=== PATIENT | male | born 1975 | race Caucasian/White ===

== ENCOUNTER 2023-10-23 18:56 | Emergency (ER) | payer BC ==
[~2023-10-23] VITALS: Ht 177.8 cm; Wt 109.1 kg
[2023-10-23 19:11] VITALS: TEMP 98.2
[2023-10-23] MEDS ORDERED: Ketorolac 15 MG/ML VIAL IV ONE (19:30)
[2023-10-23] MEDS ORDERED: Ondansetron 4 MG/2 ML VIAL IV ONE (19:30)
[2023-10-23] MEDS ORDERED: LR 1,000 ML IV ONE (19:30)
[2023-10-23 19:47] LABS: COLLECTION METHOD CLEAN CATCH
[2023-10-23 19:52] LABS: BASO # 0.1 K/mm3 (0.0-0.2); BASO % 0.4 % (0.0-2.0); EOS # 0.1 K/mm3 (0.0-0.7); EOS % 0.6 % (0.0-4.0); GRAN # 11.7 K/mm3 (1.4-6.5); GRAN % 82.7 % (42.2-75.2); HEMATOCRIT 45.4 % (42.0-52.0); HEMOGLOBIN 16.5 g/dl (13.5-18.0); LYMPH # 1.1 K/mm3 (1.2-3.4); LYMPH % 7.9 % (20.0-51.0); MEAN CELL VOLUME 93 fl (80.0-100.0); MEAN CORPUSCULAR HEMOGLOBIN 34 pg (27-31); MEAN CORPUSCULAR HGB CONC 36 g/dl (33.0-37.0); MEAN PLATELET VOLUME 9.6 fl (7.4-10.4); MONO # 1.2 K/mm3 (0.1-0.6); MONO % 8.1 % (1.7-9.3); PH 7.5 (5.0-8.5); PLATELET COUNT 269 K/mm3 (130-400); RED BLOOD COUNT 4.89 M/mm3 (4.20-5.60); REDCELL DISTRIBUTION WIDTH-CV 13.2 % (11.5-14.5); URINE APPEARANCE CLEAR (CLEAR/HAZY); URINE BLOOD NEGATIVE (NEGATIVE); URINE COLOR YELLOW (YELLOW); URINE GLUCOSE NEGATIVE (NEGATIVE); URINE KETONE TRACE (NEGATIVE); URINE NITRATE NEGATIVE (NEGATIVE); URINE PROTEIN(semi-quant) NEGATIVE (NEGATIVE)
[2023-10-23 20:15] LABS: ALBUMIN 4.1 g/dL (3.5-5.0); BILIRUBIN,TOTAL 0.5 mg/dL (0.2-1.2); CALCIUM 9.7 mg/dL (8.4-10.2); CREATININE, serum 1.5 mg/dL (0.72-1.25); POTASSIUM 4.2 mEq/L (3.5-4.5); TOTAL PROTEIN 7.6 g/dl (6.2-8.1)
[2023-10-23] MEDS ORDERED: FLOMAX 0.40.4 MG/CAP PO (21:46)
[2023-10-23] MEDS ORDERED: ZOFRAN ODT4 MG PO (21:47)
[2023-10-23 22:00] VITALS: BP 165/106; PULSE 66
== END 2023-10-23 22:07 | disposition home or self-care (01) ==
LOC: COL.ER 18:56
PROVIDERS: Emergency Medicine
DX: N13.2 Hydronephrosis with renal and ureteral calculous obstruction (principal)
CPT/HCPCS: J1885; J2405; J7120